=== PATIENT | female | born 2000 | race Caucasian/White ===

== ENCOUNTER → 2023-11-14 | Outpatient (CLI) | payer OTHER ==
[2023-11-14 15:24] LABS: BASO % 0.3 % (0.0-1.0); EOS # 0.2 10^3/uL (0.0-0.5); EOS % 1.7 % (0.0-3.0); HEMATOCRIT 38.9 % (36.0-47.0); HEMOGLOBIN 12.5 g/dl (12.0-15.5); LYMPH # 2.4 10^3/uL (1.5-5.0); LYMPH % 25.3 % (24.0-44.0); MEAN CORPUSCULAR HEMOGLOBIN 26.4 pg (27.0-33.0); MEAN CORPUSCULAR HGB CONC 32.1 g/dl (32.0-36.5); MEAN CORPUSCULAR VOLUME 82.2 fl (80.0-96.0); MONO # 0.6 10^3/uL (0.0-0.8); MONO % 6.5 % (2.0-8.0); NEUTROPHILS # 6.2 10^3/uL (1.5-8.5); NEUTROPHILS % 65.8 % (36.0-66.0); PLATELET COUNT, AUTOMATED 507 10^3/uL (150-450); RED BLOOD COUNT 4.73 10^6/uL (4.00-5.40); WHITE BLOOD COUNT 9.4 10^3/uL (4.0-10.0)
[2023-11-14 15:36] LABS: INR 1.03; PARTIAL THROMBOPLASTIN TIME 28.6 SECONDS (24.8-34.2); PROTHROMBIN TIME 13.1 SECONDS (12.5-14.5)
== END ==
LOC: M PLALAB 13:39
PROVIDERS: ATTEND Internal Medicine Hematology
DX: D75.839 Thrombocytosis, unspecified (principal); D47.3 Essential (hemorrhagic) thrombocythemia

== ENCOUNTER 2023-12-25 13:25 | Outpatient (CLI) | payer OTHER ==
[~2023-12-25] VITALS: Ht 162.6 cm; Wt 156.3 kg
[~2023-12-25 13:25] MED LIST: ALBUTEROL SULFATE 2.5MG/0.5ML INH NEB SOLN INH PRN; EPINEPHrine INJ 1 MG/ML 1ML AMP IM PRN; diphenhydrAMINE 50MG/ML VIAL IV PRN; methylPREDNISolone 125MG 2ML VIAL IV PRN
[2023-12-25] MEDS ORDERED: NS 1,000 ML IV SCH (13:30)
[2023-12-25 13:35] VITALS: BP 145/84; O2SAT 98
[2023-12-25] MEDS: IRON SUCROSE 200 MG in NS 100 ML OVER 1 HR IV ONE (14:08)
[2023-12-25 15:25] VITALS: BP 130/80; O2SAT 98
== END 2023-12-25 15:26 | disposition home or self-care (01) ==
LOC: M INFU 13:25
PROVIDERS: ATTEND Internal Medicine Hematology
DX: D50.9 Iron deficiency anemia, unspecified (principal)
CPT/HCPCS: 96365; J1756

== ENCOUNTER 2024-01-02 13:48 | Outpatient (CLI) | payer OTHER ==
[~2024-01-02] VITALS: Ht 162.6 cm; Wt 156.3 kg
[~2024-01-02 13:48] MED LIST changes: +NS 1,000 ML IV SCH; +UNRESOLVED CLARIFICATION ENTRY XX SCH
[2024-01-02 13:55] VITALS: BP 129/65; O2SAT 100
[2024-01-02] MEDS: IRON SUCROSE 200 MG in NS 100 ML OVER 1 HR IV ONE (14:17)
[2024-01-02 15:20] VITALS: BP 122/75; O2SAT 98
== END 2024-01-02 15:22 | disposition home or self-care (01) ==
LOC: M INFU 13:48
PROVIDERS: ATTEND Internal Medicine Hematology
DX: D50.9 Iron deficiency anemia, unspecified (principal)
CPT/HCPCS: 96365; J1756